=== PATIENT | female | born 1995 | race Caucasian/White ===

== ENCOUNTER 2017-01-21 20:41 | Emergency (ER) | payer MEDICAID ==
[~2017-01-21 20:41] MED LIST: ABILIFY5 MG PO; ACETAMINOPHN-12.5 ML PO; ALBUTEROL SUL5 MG/ML INH; ALBUTEROL17 GM; ALBUTEROL17 GM INH; ALKA-SELTZER P1 EAC1 PO; AMOX TR-K CLV1 EAC4 PO; ATIVAN1 M2 PO; AUGMENTIN 875-1 EAC2 PO; BACTRIM 400-801 EAC1 PO; BUSPIRONE HCL10 M2 PO; CLONAZEPAM1 M2 PO; CLONIDINE HCL0.1 M2 PO; COLACE100 M1 PO; COLD AND FLU PO; COMPAZINE10 MG PO; CORTISPORIN EAR10 M LEFT EAR; FIORINAL 50-321 EACH PO; FLAGYL500 M1 PO; FLEXERIL10 MG PO; HYDROCODON-ACE1 EA16 PO; IBUPROFEN200 MG; KEFLEX500 MG PO; KEPPRA500 M3 PO; LEVETIRACETAM500 M2 PO; LEXAPRO10 MG PO; LEXAPRO20 MG PO; LYRICA75 MG PO; MINIPRESS1 M1 PO; MIRALAX17 G2 PO; MIRTAZAPINE30 M2 PO; MOTRIN IB200 M1 PO; NAPROSYN375 MG PO; NEURONTIN300 M1 PO; NORCO 5-325 TA1 EACH PO; OMEPRAZOLE20 MG PO; PERCOCET 5-3251 EACH PO; PREVACID15 MG; PRISTIQ ER100 MG PO; PROMETHAZINE12.5 M2 PO; PROVENTIL0.83 MG/ML IH; SAPHRIS2.5 MG PO; TAMIFLU75 MG PO; TRAZODONE100 MG PO; VENTOLIN HFA18 G2 PO; VIIBRYD20 M1 PO; XANAX1 M1 PO; [UNRECOGNIZED DRUG - OTHER] PO
[2017-01-21] MEDS ORDERED: PRISTIQ ER100 MG PO (22:53)
[2017-01-21] MEDS ORDERED: BRINTELLIX10 M1 PO (22:54)
[2017-01-21] MEDS ORDERED: VENLAFAXINE HC150 M2 PO (22:55)
[2017-01-21] MEDS ORDERED: LUNESTA1 M1 PO (22:56)
== END 2017-01-22 00:29 ==
LOC: EDMED 20:41
PROC: 0HQHXZZ Repair Right Upper Leg Skin, External Approach (ICD-10-PCS; principal; 2017-01-21)
DX: S71.111A Laceration without foreign body, right thigh, initial encounter (principal); F41.9 Anxiety disorder, unspecified; F32.9 Major depressive disorder, single episode, unspecified; K21.9 Gastro-esophageal reflux disease without esophagitis; F17.210 Nicotine dependence, cigarettes, uncomplicated; Z79.51 Long term (current) use of inhaled steroids; Z79.899 Other long term (current) drug therapy; Z23 Encounter for immunization; W27.5XXA Contact with paper-cutter, initial encounter; Y93.89 Activity, other specified; Y92.019 Unspecified place in single-family (private) house as the place of occurrence of the external cause; Y99.8 Other external cause status

== ENCOUNTER 2017-05-13 15:28 | Emergency (ER) | payer MEDICAID ==
[~2017-05-13 15:28] MED LIST changes: +BRINTELLIX10 M1 PO; +LUNESTA1 M1 PO; +VENLAFAXINE HC150 M2 PO
[2017-05-13] MEDS ORDERED: KEPPRA500 M3 PO (15:40)
[2017-05-13] MEDS ORDERED: TRINTELLIX PO (15:42)
[2017-05-13] MEDS ORDERED: ZITHROMAX250 M1 PO (15:43)
[2017-05-13] MEDS ORDERED: ALBUTEROL2.5 MG/3 M INH (15:43)
== END 2017-05-13 16:08 ==
LOC: EDMED 15:28
DX: J02.9 Acute pharyngitis, unspecified (principal); J35.8 Other chronic diseases of tonsils and adenoids; J45.909 Unspecified asthma, uncomplicated; F41.9 Anxiety disorder, unspecified; F32.9 Major depressive disorder, single episode, unspecified; F17.210 Nicotine dependence, cigarettes, uncomplicated; G40.909 Epilepsy, unspecified, not intractable, without status epilepticus; Z79.51 Long term (current) use of inhaled steroids; Z79.899 Other long term (current) drug therapy